=== PATIENT | male | born 1965 ===

== ENCOUNTER 2020-09-08 14:58 | Inpatient (IN) | payer MEDICAID ==
[~2020-09-08] VITALS: Ht 170.2 cm; Wt 101.0 kg
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
[2020-09-08] MEDS ORDERED: LISI2.5T PO (15:36)
[2020-09-08] MEDS ORDERED: ALBUTEROL/IPRATROPIUM 2.5MG/0.5MG, 3 ML ONE (15:40)
--- NOTE | 2020-09-08 15:54 | NUR ---
PT MEDICATED PER EMAR.
[2020-09-08] MEDS ORDERED: ALBUTEROL/IPRATROPIUM 2.5MG/0.5MG, 3 ML NPPB ONE (16:00)
--- NOTE | 2020-09-08 16:00 | NUR ---
REPORT TO JAZIEL GALLEGO
[2020-09-08 16:01] LABS: ALANINE AMINOTRANSFERASE 84 U/L (12-78); ALBUMIN 3.4 g/dL (3.4-5.0); ANION GAP 6 mmol/L (5-15); CALCIUM 8.4 mg/dL (8.5-10.1); CHLORIDE 110 mmol/L (98-107)
--- NOTE | 2020-09-08 16:01 | NUR ---
pt in bed with neb running, alert and awake in bed, sitting up right with athletic monitor in place and at bedside. no signs or symptoms of acute dsitress noted respirations even and unlabored
[2020-09-08 16:02] LABS: BASOPHILS % (AUTO) 2 % (0-1); EOSINOPHILS % (AUTO) 5 % (1-7); LYMPHOCYTES % (AUTO) 27 % (22-44); MEAN CORPUSCULAR HEMOGLOBIN 17.8 pg (27.5-34.5); MEAN PLATELET VOLUME 8.4 fL (7.4-10.4); MONOCYTES % (AUTO) 9 % (2-9); NEUTROPHILS % (AUTO) 58 % (42-75); PLATELET COUNT 366 x10^3/uL (130-400); RED BLOOD COUNT 5.06 x10^6/uL (4.38-5.82); RED CELL DISTRIBUTION WIDTH 19.5 % (9.4-14.8)
[2020-09-08 16:03] LABS: MEAN CORPUSCULAR HGB CONC 28.8 g/dL (33.2-36.2)
[2020-09-08 16:04] LABS: MD NO
[2020-09-08 16:05] LABS: ALKALINE PHOSPHATASE 105 U/L (45-117); BILIRUBIN,TOTAL 1.1 mg/dL (0.2-1.0); CREATININE 1.01 mg/dL (0.7-1.3); TOTAL PROTEIN 7.3 g/dL (6.4-8.2)
[2020-09-08] MEDS ORDERED: ALBUTEROL SULFATE 2.5 MG/3 ML ONE (16:26)
[2020-09-08] MEDS ORDERED: ASPIRIN 81 MG TABLET CHEW ONE (16:26)
[2020-09-08] MEDS ORDERED: ALBUTEROL SULFATE 2.5 MG/3 ML NPPB ONE (16:30)
[2020-09-08] MEDS ORDERED: ASPIRIN 81 MG TABLET CHEW PO ONE (16:30)
--- NOTE | 2020-09-08 16:45 | NUR ---
pt finished second neb, noted to still be using accessory muscles in abd to breathe, but pt reports feeling improved, states "it has made such a difference" denies pain or discomfort at this time.
--- NOTE | 2020-09-08 17:24 | NUR ---
pt sitting upright in bed, no longer noted to be using accessory muscles to breathe, relaxed and calm in bed. no signs or symptoms of acute dsitress noted respirations even and unlaboerd, pt denies pain or need at this time. pt continues on monitor and storage bin tender with bed rails up bilaterally and call light within reach. at bedside.
[2020-09-08] MEDS ORDERED: OMNIPAQUE 350 MG/ML, 75ML BOTTLE ONE (18:51)
--- NOTE | 2020-09-08 19:03 | NUR ---
report called to floor, pt to hold in er until cta read is available. pt and agreeable with plan of care. pt in bed satting well on room air no signs or symptoms of acute dsitress noted respirations even and unlabored.pt denies pain or discomfort at this time.
[2020-09-08 19:30] VITALS: BP 173/112
[2020-09-08 22:15] VITALS: BP 159/103
[2020-09-08] MEDS ORDERED: LABETALOL 5MG/ML, 20ML IVPush PRN (22:30)
[2020-09-08] MEDS ORDERED: DOCUSATE 100 MG CAPSULE PO PRN (22:30)
[2020-09-08] MEDS ORDERED: LIDODERM 5% PATCH TD PRN (22:30)
[2020-09-08 23:08] LABS: % IRON SATURATION 4 % (20-55); IRON LEVEL 21 mcg/dL (65-175); TOTAL IRON BINDING CAPACITY 554 mcg/dL (250-450)
[2020-09-08 23:12] LABS: TROPONIN I 0.812 ng/mL (0.000-0.045)
[2020-09-08] MEDS: CETIRIZINE 10 MG TABLET PO SCH (23:12)
[2020-09-08] MEDS: ENOXAPARIN 40 MG/0.4 ML SQ SCH (23:12)
[2020-09-08] MEDS ORDERED: ALBUTEROL-IPRATROPIUM MDI INH INH PRN (23:30)
[2020-09-09 00:09] LABS: MICROSCOPIC AUTO
[2020-09-09 00:17] LABS: AMPHETAMINE SCREEN, URINE Positive (Negative); BARBITURATE SCREEN, URINE Negative (Negative); BENZODIAZEPINE SCREEN, URINE Negative (Negative); CANNABINOID SCREEN, URINE Negative (Negative); COCAINE SCREEN, URINE Negative (Negative); METHADONE SCREEN, URINE Negative (Negative); OPIATE SCREEN, URINE Negative (Negative)
[2020-09-09 01:17] VITALS: BP 162/97
[2020-09-09 04:39] LABS: BASOPHILS % (AUTO) 1 % (0-1); EOSINOPHILS % (AUTO) 0 % (1-7); LYMPHOCYTES % (AUTO) 14 % (22-44); MEAN CORPUSCULAR HEMOGLOBIN 17.6 pg (27.5-34.5); MEAN PLATELET VOLUME 8.6 fL (7.4-10.4); MONOCYTES % (AUTO) 8 % (2-9); NEUTROPHILS % (AUTO) 78 % (42-75); PLATELET COUNT 368 x10^3/uL (130-400); RED BLOOD COUNT 5.22 x10^6/uL (4.38-5.82); RED CELL DISTRIBUTION WIDTH 19.5 % (9.4-14.8)
[2020-09-09 04:40] LABS: MEAN CORPUSCULAR HGB CONC 28.8 g/dL (33.2-36.2)
[2020-09-09 04:41] LABS: MD NO
[2020-09-09 04:48] LABS: ANION GAP 4 mmol/L (5-15); CALCIUM 8.7 mg/dL (8.5-10.1); CHLORIDE 110 mmol/L (98-107); CREATININE 0.97 mg/dL (0.7-1.3)
[2020-09-09 04:52] LABS: TROPONIN I 0.766 ng/mL (0.000-0.045)
[2020-09-09 07:49] VITALS: BP 156/106
[2020-09-09] MEDS: CETIRIZINE 10 MG TABLET PO SCH (07:58)
[2020-09-09 12:35] VITALS: BP 155/95
[2020-09-09] MEDS ORDERED: FUROSEMIDE 40 MG/4 ML IV ONE (14:00)
[2020-09-09 19:24] VITALS: BP 160/86
[2020-09-09] MEDS: ENOXAPARIN 40 MG/0.4 ML SQ SCH (22:32)
[2020-09-09] MEDS: MELATONIN 5 MG TABLET PO PRN (22:32)
[2020-09-10 01:33] VITALS: BP 152/91
[2020-09-10] MEDS ORDERED: FERROUS SULFATE 325 MG TABLET PO SCH (08:00)
[2020-09-10] MEDS: CARVEDILOL 6.25 MG TABLET PO SCH ×2 (08:12→16:59)
[2020-09-10] MEDS: CETIRIZINE 10 MG TABLET PO SCH (08:12)
[2020-09-10 09:43] VITALS: BP 145/97
[2020-09-10] MEDS: FUROSEMIDE 40 MG/4 ML IV SCH ×2 (09:59→16:59)
[2020-09-10] MEDS: IRON SUCROSE COMPLEX 100MG/5ML IV SCH (09:59)
[2020-09-10 16:56] VITALS: BP 157/110
[2020-09-10] MEDS ORDERED: OMNIPAQUE 350 MG/ML, 100ML BOTTLE ONE (18:15)
[2020-09-10] MEDS: LISINOPRIL 10 MG TABLET PO SCH (18:30)
[2020-09-10 19:33] VITALS: BP 135/82
[2020-09-10] MEDS: MELATONIN 5 MG TABLET PO PRN (20:53)
[2020-09-10] MEDS: ENOXAPARIN 40 MG/0.4 ML SQ SCH (20:57)
[2020-09-11 01:50] VITALS: BP 128/81
[2020-09-11 04:48] LABS: BASOPHILS % (AUTO) 1 % (0-1); EOSINOPHILS % (AUTO) 4 % (1-7); LYMPHOCYTES % (AUTO) 23 % (22-44); MEAN CORPUSCULAR HEMOGLOBIN 17.7 pg (27.5-34.5); MEAN PLATELET VOLUME 8.3 fL (7.4-10.4); MONOCYTES % (AUTO) 8 % (2-9); NEUTROPHILS % (AUTO) 63 % (42-75); PLATELET COUNT 412 x10^3/uL (130-400); RED BLOOD COUNT 5.68 x10^6/uL (4.38-5.82); RED CELL DISTRIBUTION WIDTH 19.5 % (9.4-14.8)
[2020-09-11 05:02] LABS: MEAN CORPUSCULAR HGB CONC 29.3 g/dL (33.2-36.2)
[2020-09-11 05:03] LABS: ALBUMIN 3.3 g/dL (3.4-5.0); ANION GAP 6 mmol/L (5-15); CALCIUM 8.7 mg/dL (8.5-10.1); CHLORIDE 105 mmol/L (98-107); MD NO
[2020-09-11 05:06] LABS: ALANINE AMINOTRANSFERASE 56 U/L (12-78); ALKALINE PHOSPHATASE 104 U/L (45-117); BILIRUBIN,TOTAL 0.9 mg/dL (0.2-1.0); CREATININE 1.06 mg/dL (0.7-1.3); TOTAL PROTEIN 7.2 g/dL (6.4-8.2)
[2020-09-11] MEDS: CARVEDILOL 6.25 MG TABLET PO SCH ×2 (05:56→18:30)
[2020-09-11] MEDS ORDERED: POLYETHYLENE GLYCOL 17 GM PACKET PO PRN (08:30)
[2020-09-11 08:47] VITALS: BP 129/78
[2020-09-11] MEDS: FUROSEMIDE 40 MG/4 ML IV SCH ×2 (08:57→16:48)
[2020-09-11] MEDS: SENNA/DOCUSATE TABLET PO SCH ×2 (08:57→09:00)
[2020-09-11] MEDS: CETIRIZINE 10 MG TABLET PO SCH (08:57)
[2020-09-11] MEDS: IRON SUCROSE COMPLEX 100MG/5ML IV SCH (08:57)
[2020-09-11] MEDS: LISINOPRIL 10 MG TABLET PO SCH (08:57)
[2020-09-11] MEDS: SPIRONOLACTONE 25 MG TABLET PO SCH (12:22)
[2020-09-11 14:21] VITALS: BP 127/84
[2020-09-11 19:19] VITALS: BP 110/75
[2020-09-11] MEDS: ENOXAPARIN 40 MG/0.4 ML SQ SCH (22:04)
[2020-09-12 00:34] LABS: OCCULT BLOOD POSITIVE (NEGATIVE)
[2020-09-12 00:53] VITALS: BP 120/80
[2020-09-12 05:24] VITALS: BP 111/74
[2020-09-12] MEDS: CARVEDILOL 6.25 MG TABLET PO SCH (05:25)
[2020-09-12 05:55] LABS: MEAN PLATELET VOLUME 8.4 fL (7.4-10.4); PLATELET COUNT 461 x10^3/uL (130-400); RED BLOOD COUNT 6.21 x10^6/uL (4.38-5.82); RED CELL DISTRIBUTION WIDTH 19.2 % (9.4-14.8)
[2020-09-12 06:03] LABS: ANION GAP 6 mmol/L (5-15); CHLORIDE 106 mmol/L (98-107); CREATININE 1.06 mg/dL (0.7-1.3)
[2020-09-12 06:15] LABS: MD YES; MEAN CORPUSCULAR HGB CONC 29.7 g/dL (33.2-36.2)
[2020-09-12 06:35] LABS: ANISOCYTOSIS 1+; BASOS#(MANUAL) 0.14 x10^3/uL (0-0.1); BASOS% (MANUAL) 1 % (0-1); EOS#(MANUAL) 0.28 x10^3/uL (0.0-0.4); EOS% (MANUAL) 2 % (1-7); HYPOCHROMIA 1+; LYMPH#(MANUAL) 2.56 x10^3/uL (1-3.4); LYMPHS% (MANUAL) 18 % (22-44); MICROCYTOSIS 2+; MONOS#(MANUAL) 1.14 x10^3/uL (0.3-2.7); MONOS% (MANUAL) 8 % (2-9); POLYCHROMASIA 1+; SEG#(MANUAL) 10.08 x10^3/uL (1.8-6.8); SEGS% (MANUAL) 71 % (42-75)
[2020-09-12 06:36] LABS: OVALOCYTES 2+
[2020-09-12 06:37] LABS: <PLATELET ESTIMATE> INCREASED; <PLT MORPHOLOGY> NORMAL PLT MORPH
[2020-09-12 06:43] VITALS: BP 121/83
[2020-09-12] MEDS ORDERED: REGADENOSON 0.4 MG/5 ML SYRINGE ONE (07:48)
[2020-09-12] MEDS: IRON SUCROSE COMPLEX 100MG/5ML IV SCH (10:51)
[2020-09-12] MEDS: FUROSEMIDE 40 MG/4 ML IV SCH (10:51)
[2020-09-12] MEDS: SENNA/DOCUSATE TABLET PO SCH (10:53)
[2020-09-12] MEDS: SPIRONOLACTONE 25 MG TABLET PO SCH (10:53)
[2020-09-12] MEDS: CETIRIZINE 10 MG TABLET PO SCH (10:53)
[2020-09-12] MEDS: LISINOPRIL 10 MG TABLET PO SCH (10:53)
[2020-09-12 12:02] VITALS: BP 126/82
[2020-09-12] MEDS ORDERED: FERR325T18 PO (12:36)
[2020-09-12] MEDS ORDERED: CARV6.2512 PO (12:36)
[2020-09-12] MEDS ORDERED: FURO40TA6 PO (12:36)
[2020-09-12] MEDS ORDERED: SPIR25TA PO (12:36)
[2020-09-12] MEDS ORDERED: LISI-167 PO (12:36)
== END 2020-09-12 14:44 | disposition home or self-care (01) | DRG 917 ==
LOC: ED 15:28 → EDIP 20:42 → 4WST 20:53 → DCLOUNGE 09-12 14:44
PROVIDERS: ADMIT Family Medicine; ATTEND Family Medicine
DX: T43.621A Poisoning by amphetamines, accidental (unintentional), initial encounter (principal); I21.A1 Myocardial infarction type 2; I50.41 Acute combined systolic (congestive) and diastolic (congestive) heart failure; I42.9 Cardiomyopathy, unspecified; I11.0 Hypertensive heart disease with heart failure; I25.10 Atherosclerotic heart disease of native coronary artery without angina pectoris; I49.3 Ventricular premature depolarization; J30.9 Allergic rhinitis, unspecified; J98.01 Acute bronchospasm; D50.9 Iron deficiency anemia, unspecified; D72.829 Elevated white blood cell count, unspecified; E11.65 Type 2 diabetes mellitus with hyperglycemia; E66.9 Obesity, unspecified; E78.5 Hyperlipidemia, unspecified; F15.10 Other stimulant abuse, uncomplicated; Z82.49 Family history of ischemic heart disease and other diseases of the circulatory system; Z87.891 Personal history of nicotine dependence; Z80.9 Family history of malignant neoplasm, unspecified; Y92.89 Other specified places as the place of occurrence of the external cause; Z68.34 Body mass index [BMI] 34.0-34.9, adult; Z79.899 Other long term (current) drug therapy; Z79.891 Long term (current) use of opiate analgesic
CPT/HCPCS: 36415; 93017; 99285; J7613; 71045; 71275; 74177; 78452; 80048; 80053; 80074; 80307; 80320; 81001; 82272; 82378; 82728; 83036; 83540; 83550; 83880; 84443; 84484; 85025; 85379; 93005; 93306; G0378; J1650; J1756; J1940; J2785; Q9967; A9502; G0480; J7512